=== PATIENT | female | born 1965 | race Caucasian/White ===

== ENCOUNTER 2019-04-11 17:15 | Emergency (ER) | payer MEDICAID ==
[~2019-04-11] VITALS: Ht 154.9 cm; Wt 86.2 kg
[2019-04-11 18:13] VITALS: Ht 154.9 cm; Wt 86.2 kg
[2019-04-11 18:42] LABS: BASOPHIL % 0.2 % (0-2); PLATELET COUNT 280 x10^3mcL (130-400); RED CELL DISTRIBUTION WIDTH 12.4 % (11.5-14.5)
[2019-04-11 19:34] LABS: ALBUMIN 3.7 g/dL (3.4-5.0); CARBON DIOXIDE 29.2 mmol/L (21-32); CHLORIDE SERUM 95 mmol/L (98-107); CREATININE SERUM 0.7 mg/dL (0.6-1.0); GFR1 > 60 mL/min; GLUCOSE SERUM 277 mg/dL (74-106); POTASSIUM SERUM 3.7 mmol/L (3.5-5.1); SODIUM SERUM 132 mmol/L (136-145); TOTAL PROTEIN, SERUM 8.2 g/dL (6.4-8.2)
[2019-04-11 19:35] LABS: ALKALINE PHOSPHATASE 135 U/L (46-116); ALT/SGPT 71 U/L (14-59); AST/SGOT 37 U/L (15-37); BILIRUBIN TOTAL 0.3 mg/dL (0.20-1.00); CALCIUM 9.7 mg/dL (8.5-10.1)
[2019-04-11 20:21] LABS: microscopic required? YES; urine erythrocyte NEGATIVE (NEGATIVE)
[2019-04-11 23:08] VITALS: BP 146/88
== END 2019-04-11 23:26 | disposition home or self-care (01) ==
LOC: ED 17:15
PROVIDERS: Emergency Medicine
DX: N13.2 Hydronephrosis with renal and ureteral calculous obstruction (principal); R80.9 Proteinuria, unspecified; E11.9 Type 2 diabetes mellitus without complications
CPT/HCPCS: 36415; J7030; Q9967